=== PATIENT | female | born 1965 | race Two or more races ===

== ENCOUNTER 2016-10-15 11:14 | Emergency (ER) | payer MEDICARE, MEDICAID ==
[~2016-10-15] VITALS: Ht 147.3 cm; Wt 72.6 kg
[~2016-10-15 11:14] MED LIST: BUPR100T71; CARI250T8; FENT100D11; FENT25DI2; HYDR-2595; LORA1TAB12; METO25TA62; NOR10T; PREG25CA; SUM25T; ZOLP-158
[2016-10-15 11:23] VITALS: BP 113/86
[2016-10-15] MEDS: cefTRIAXone SOD 1,000 MG VL IM ONE (13:07)
[2016-10-15] MEDS: KETOROLAC TROMETH 60MG/2ML VIAL IM ONE (13:07)
== END 2016-10-15 13:44 | disposition home or self-care (01) ==
LOC: ER 11:24
DX: H66.91 Otitis media, unspecified, right ear (principal); J03.90 Acute tonsillitis, unspecified; M19.90 Unspecified osteoarthritis, unspecified site; Z88.1 Allergy status to other antibiotic agents; Z88.6 Allergy status to analgesic agent; Z90.710 Acquired absence of both cervix and uterus; Z90.49 Acquired absence of other specified parts of digestive tract; Z91.041 Radiographic dye allergy status
CPT/HCPCS: 96372; 99284; J0696; J1885

== ENCOUNTER 2016-12-18 01:29 | Emergency (ER) | payer MEDICARE, MEDICAID ==
[~2016-12-18] VITALS: Ht 147.3 cm; Wt 72.6 kg
[~2016-12-18 01:29] MED LIST changes: +CARI250T; -CARI250T8
[2016-12-18 01:58] LABS: Basophils # (auto) 0 uL; Basophils % (auto) 0.4 % (0.0-2.0); Eosinophils # (auto) 0.2 uL; Eosinophils % (auto) 1.5 % (0.0-7.0); Hematocrit 41.5 % (36.0-46.0); Hemoglobin 13.9 g/dL (12.2-16.2); Lymphocytes # (auto) 1.4 uL; Lymphocytes % (auto) 13.1 % (10.0-50.0); Mean Corpuscular Hemoglobin 28.4 pg (28.0-32.0); Mean Corpuscular Hgb Conc. 33.4 g/dL (32.0-36.0); Mean Corpuscular Volume 84.9 fL (80.0-100.0); Mean Platelet Volume 8.1 fL (7.4-10.4); Monocytes # (auto) 0.7 uL; Monocytes % (auto) 6.7 % (0.0-12.0); Neutrophils # (auto) 8.6 uL; Neutrophils % (auto) 78.3 % (37.0-80.0); Platelet Count (auto) 224 10^3/uL (140-450); Red Cell Distribution Width 13.8 % (11.6-16.0)
[2016-12-18 02:16] LABS: Albumin 3.2 g/dL (3.4-5.0); Anion Gap 11 (5-15); Aspartate Aminotransferase 12 U/L (15-37); BUN/Creatinine Ratio 16.5; Blood Urea Nitrogen 15 mg/dL (7-18); Calcium 8.7 mg/dL (8.5-10.1); Carbon Dioxide 25 mmol/L (21-32); Chloride 107 mmol/L (98-107); GFR African American 84 mL/min; GFR Non-African American 70 mL/min; Glucose 118 mg/dL (74-106); Potassium 3.6 mmol/L (3.5-5.1); Sodium 143 mmol/L (136-145)
[2016-12-18 02:23] LABS: Alkaline Phosphatase 107 U/L (45-117); Bilirubin, Total 0.4 mg/dL (0.2-1.0); Total Protein 7.7 g/dL (6.4-8.2)
[2016-12-18 02:38] LABS: Salicylate < 1.7 mg/dL (2.8-20.0)
[2016-12-18 02:39] LABS: Acetaminophen < 2.0 ug/mL (10-30)
[2016-12-18 03:55] LABS: Urine Bilirubin Negative (Negative); Urine Blood Negative /uL (Negative); Urine Color Yellow (Yellow); Urine Glucose Normal (Normal); Urine Granular Cast FEW /lpf (0); Urine Ketone Negative (Negative); Urine Nitrite Negative (Negative); Urine RBC 3 /hpf (0 - 4); Urine Squamous Epithelial Cell FEW /hpf (<5); Urine Urobilinogen Normal (Negative); Urine pH 5.5 (5.0-8.0)
[2016-12-18 08:00] VITALS: BP 104/68
== END 2016-12-18 08:17 | disposition home or self-care (01) ==
LOC: ER 01:29 → EDBD 01:29 → ER 08:17
DX: T43.591A Poisoning by other antipsychotics and neuroleptics, accidental (unintentional), initial encounter (principal); R42 Dizziness and giddiness; F17.210 Nicotine dependence, cigarettes, uncomplicated; M19.90 Unspecified osteoarthritis, unspecified site; G89.29 Other chronic pain; M54.9 Dorsalgia, unspecified; Z90.49 Acquired absence of other specified parts of digestive tract; Z90.710 Acquired absence of both cervix and uterus; Z88.1 Allergy status to other antibiotic agents; Z88.6 Allergy status to analgesic agent; Z91.041 Radiographic dye allergy status; Y93.89 Activity, other specified; Y99.8 Other external cause status; Y92.89 Other specified places as the place of occurrence of the external cause
CPT/HCPCS: 36415; 70450; 71010; 80053; 80307; 80320; 80329; 81001; 84484; 85025; 93005

== ENCOUNTER 2017-06-30 16:37 | Emergency (ER) | payer MEDICARE, MEDICAID ==
[~2017-06-30] VITALS: Ht 147.3 cm; Wt 72.6 kg
[2017-06-30 17:00] VITALS: BP 127/77
[2017-06-30] MEDS ORDERED: HYDROcodone-ACET 10/325MG TAB PO ONE (21:30)
== END 2017-06-30 22:13 | disposition home or self-care (01) ==
LOC: ER 16:37
DX: S70.02XA Contusion of left hip, initial encounter (principal); M19.90 Unspecified osteoarthritis, unspecified site; F17.210 Nicotine dependence, cigarettes, uncomplicated; W18.31XA Fall on same level due to stepping on an object, initial encounter; Y93.89 Activity, other specified; Y92.89 Other specified places as the place of occurrence of the external cause; Y99.8 Other external cause status; Z90.49 Acquired absence of other specified parts of digestive tract; Z90.710 Acquired absence of both cervix and uterus; Z88.2 Allergy status to sulfonamides; Z88.6 Allergy status to analgesic agent
CPT/HCPCS: 73502; 73700

== ENCOUNTER 2017-12-19 13:45 | Emergency (ER) | payer MEDICARE, MEDICAID ==
[~2017-12-19] VITALS: Ht 147.3 cm; Wt 72.6 kg
[2017-12-19] MEDS ORDERED: SODIUM CHLORIDE 0.9% 1,000 ML IVB ONE (14:42)
[2017-12-19] MEDS ORDERED: MORPHINE SULFATE 8mg/ml INJ SDV IV ONE (14:45)
[2017-12-19] MEDS ORDERED: ONDANSETRON HCL 4 MG/2 ML VIAL IV ONE (14:45)
[2017-12-19 14:46] LABS: Basophils # (auto) 0.1 uL; Eosinophils # (auto) 0.2 uL; Hematocrit 42.3 % (36.0-46.0); Lymphocytes # (auto) 1.7 uL; Lymphocytes % (auto) 26.7 % (10.0-50.0); Mean Corpuscular Hemoglobin 28.6 pg (28.0-32.0); Mean Corpuscular Volume 86.8 fL (80.0-100.0); Monocytes # (auto) 0.5 uL; Monocytes % (auto) 7.6 % (0.0-12.0); Neutrophils % (auto) 61.7 % (37.0-80.0); Platelet Count (auto) 230 10^3/uL (140-450); Red Blood Cells 4.87 10^6/uL (4.0-5.20); Red Cell Distribution Width 12.9 % (11.8-14.3); White Blood Cell 6.5 10^3/uL (4.4-10.8)
[2017-12-19 15:19] LABS: Magnesium 2.2 mg/dL (1.6-2.6)
[2017-12-19 15:21] LABS: INR 0.87 (0.9-1.15); Partial Thromboplastin Time 27.8 sec (23.78-33.04); Prothrombin Time 9.4 sec (9.27-12.13)
[2017-12-19 15:25] LABS: Alanine Aminotransferase 34 U/L (13-56); Albumin 3.4 g/dL (3.4-5.0); Alkaline Phosphatase 123 U/L (45-117); Anion Gap 9 (5-15); Aspartate Aminotransferase 13 U/L (15-37); Bilirubin, Total 0.2 mg/dL (0.2-1.0); Blood Urea Nitrogen 11 mg/dL (7-18); Calcium 8.7 mg/dL (8.5-10.1); Carbon Dioxide 26 mmol/L (21-32); Chloride 105 mmol/L (98-107); GFR African American 83 mL/min; GFR Non-African American 68 mL/min; Glucose 91 mg/dL (74-106); Potassium 4.3 mmol/L (3.5-5.1); Sodium 140 mmol/L (136-145); Total Protein 7.8 g/dL (6.4-8.2)
[2017-12-19 17:19] LABS: Urine Bacteria NONE SEEN /hpf (None Seen); Urine Blood TRACE /uL (Negative); Urine Mucus FEW (None Seen); Urine WBC <1 /hpf (0 - 5)
[2017-12-19 18:11] VITALS: BP 110/75
== END 2017-12-19 18:56 | disposition home or self-care (01) ==
LOC: ER 13:48
DX: K52.9 Noninfective gastroenteritis and colitis, unspecified (principal); F17.210 Nicotine dependence, cigarettes, uncomplicated; Z90.49 Acquired absence of other specified parts of digestive tract; Z90.710 Acquired absence of both cervix and uterus; Z88.2 Allergy status to sulfonamides; Z88.6 Allergy status to analgesic agent
CPT/HCPCS: 36415; 74176; 80053; 81001; 82150; 83605; 83690; 83735; 84484; 85025; 85610; 85730; 93005; 94761; 96361; 96374; 99285; J2405; J7030

== ENCOUNTER → 2020-01-01 | Emergency (ER) | payer MEDICARE, MEDICAID ==
[~2020-01-01] VITALS: Ht 147.3 cm; Wt 72.6 kg
[~2020-01-01] MED LIST changes: -METO25TA62; +METO25TA93; +diphenhdrAMINE HCL 50 MG/1 ML VL IV ONE; +methylPREDNISolone SOD SUCC 125 MG/2 ML VL IV ONE
[2020-01-01 20:17] VITALS: BP 106/74
== END | disposition home or self-care (01) ==
LOC: ER 19:51
DX: T78.40XA Allergy, unspecified, initial encounter (principal); R22.0 Localized swelling, mass and lump, head; F17.210 Nicotine dependence, cigarettes, uncomplicated; Z90.49 Acquired absence of other specified parts of digestive tract; Z90.710 Acquired absence of both cervix and uterus; X58.XXXA Exposure to other specified factors, initial encounter
CPT/HCPCS: 96374; 96375; 99284; J1200; J2930

== ENCOUNTER 2020-02-05 16:32 | Emergency (ER) | payer MEDICARE, MEDICAID ==
[~2020-02-05] VITALS: Ht 127 cm; Wt 72.6 kg
[~2020-02-05 16:32] MED LIST changes: -LORA1TAB12; +LORA1TAB23; -diphenhdrAMINE HCL 50 MG/1 ML VL IV ONE; -methylPREDNISolone SOD SUCC 125 MG/2 ML VL IV ONE
[2020-02-05] MEDS ORDERED: methylPREDNISolone SOD SUCC 125 MG/2 ML VL ONE (18:37)
[2020-02-05] MEDS ORDERED: diphenhdrAMINE HCL 50 MG/1 ML VL ONE (18:37)
[2020-02-05 18:40] VITALS: BP 108/70
[2020-02-05] MEDS ORDERED: diphenhdrAMINE HCL 50 MG/1 ML VL IM ONE (19:00)
[2020-02-05] MEDS ORDERED: methylPREDNISolone SOD SUCC 125 MG/2 ML VL IM ONE (19:00)
== END 2020-02-05 18:57 | disposition home or self-care (01) ==
LOC: ER 16:32
DX: T78.40XA Allergy, unspecified, initial encounter (principal); F17.210 Nicotine dependence, cigarettes, uncomplicated; F32.9 Major depressive disorder, single episode, unspecified; F41.9 Anxiety disorder, unspecified; Z90.49 Acquired absence of other specified parts of digestive tract; Z79.899 Other long term (current) drug therapy; Z88.1 Allergy status to other antibiotic agents; Z88.2 Allergy status to sulfonamides; Z88.6 Allergy status to analgesic agent
CPT/HCPCS: 96372; 99284; J1200; J2930

== ENCOUNTER 2020-02-28 16:27 | Emergency (ER) | payer MEDICARE, MEDICAID ==
[~2020-02-28] VITALS: Ht 149.9 cm; Wt 74.8 kg
[2020-02-28 16:34] VITALS: BP 122/82
== END 2020-02-28 17:47 | disposition home or self-care (01) ==
LOC: ER 16:27
DX: S60.861A Insect bite (nonvenomous) of right wrist, initial encounter (principal); T78.40XA Allergy, unspecified, initial encounter; M19.90 Unspecified osteoarthritis, unspecified site; F17.210 Nicotine dependence, cigarettes, uncomplicated; Z79.899 Other long term (current) drug therapy; Z88.2 Allergy status to sulfonamides; Z91.030 Bee allergy status; Z88.8 Allergy status to other drugs, medicaments and biological substances; Z88.5 Allergy status to narcotic agent; X58.XXXA Exposure to other specified factors, initial encounter; W57.XXXA Bitten or stung by nonvenomous insect and other nonvenomous arthropods, initial encounter; Y93.89 Activity, other specified; Y92.89 Other specified places as the place of occurrence of the external cause; Y99.8 Other external cause status

== ENCOUNTER 2020-05-01 15:16 | Emergency (ER) | payer MEDICARE, MEDICAID ==
[~2020-05-01] VITALS: Ht 149.9 cm; Wt 72.6 kg
[2020-05-01 15:29] VITALS: BP 122/80
[2020-05-01] MEDS ORDERED: diphenhdrAMINE HCL 50 MG/1 ML VL IM ONE (16:45)
== END 2020-05-01 17:18 | disposition home or self-care (01) ==
LOC: ER 15:16
DX: S40.861A Insect bite (nonvenomous) of right upper arm, initial encounter (principal); F17.210 Nicotine dependence, cigarettes, uncomplicated; Z90.49 Acquired absence of other specified parts of digestive tract; Z90.710 Acquired absence of both cervix and uterus; Z88.2 Allergy status to sulfonamides; Z88.6 Allergy status to analgesic agent; W57.XXXA Bitten or stung by nonvenomous insect and other nonvenomous arthropods, initial encounter; Y93.89 Activity, other specified; Y92.89 Other specified places as the place of occurrence of the external cause; Y99.8 Other external cause status
CPT/HCPCS: 96372; 99283; J1200

== ENCOUNTER 2020-05-05 13:32 | Emergency (ER) | payer MEDICARE, MEDICAID ==
[~2020-05-05] VITALS: Ht 147.3 cm; Wt 72.6 kg
[2020-05-05 15:19] VITALS: BP 118/79
== END 2020-05-05 15:00 | disposition home or self-care (01) ==
LOC: ER 13:32
DX: R22.41 Localized swelling, mass and lump, right lower limb (principal); R21 Rash and other nonspecific skin eruption; F17.210 Nicotine dependence, cigarettes, uncomplicated; Z90.49 Acquired absence of other specified parts of digestive tract; Z90.710 Acquired absence of both cervix and uterus; Z79.899 Other long term (current) drug therapy; Z88.2 Allergy status to sulfonamides; Z88.1 Allergy status to other antibiotic agents; Z88.5 Allergy status to narcotic agent; Z88.8 Allergy status to other drugs, medicaments and biological substances

== ENCOUNTER 2020-06-16 12:50 | Emergency (ER) | payer MEDICARE, MEDICAID ==
[~2020-06-16] VITALS: Ht 177.8 cm; Wt 74.8 kg
[2020-06-16 12:55] VITALS: BP 104/61
[2020-06-16] MEDS ORDERED: EPINEPHrine HCL 1 MG/1 ML AMP SC ONE (13:30)
== END 2020-06-16 14:40 | disposition home or self-care (01) ==
LOC: ER 12:50
DX: T78.40XA Allergy, unspecified, initial encounter (principal); F17.210 Nicotine dependence, cigarettes, uncomplicated; Z90.49 Acquired absence of other specified parts of digestive tract; Z90.710 Acquired absence of both cervix and uterus; Z88.2 Allergy status to sulfonamides; Z88.6 Allergy status to analgesic agent; X58.XXXA Exposure to other specified factors, initial encounter
CPT/HCPCS: 96372; 99283; J0171

== ENCOUNTER 2021-09-16 11:42 | Emergency (ER) | payer MEDICARE, MEDICAID ==
[~2021-09-16] VITALS: Ht 147.3 cm; Wt 90.7 kg
[~2021-09-16 11:42] MED LIST changes: -ZOLP-158; +ZOLP5TAB
[2021-09-16 12:39] LABS: Basophils # (auto) 0.1 10 ^3/uL (0-0.2); Basophils % (auto) 0.8 % (0.0-2.0); Eosinophils # (auto) 0.1 10 ^3/uL (0-0.8); Eosinophils % (auto) 2.1 % (0.0-7.0); Hematocrit 44.1 % (36.0-46.0); Hemoglobin 14.5 g/dL (12.2-16.2); Lymphocytes # (auto) 1.2 10 ^3/uL (0.4-5.4); Lymphocytes % (auto) 17.3 % (10.0-50.0); Mean Corpuscular Hemoglobin 29.1 pg (28.0-32.0); Mean Corpuscular Volume 88.3 fL (80.0-100.0); Monocytes # (auto) 0.5 10 ^3/uL (0-1.3); Monocytes % (auto) 6.8 % (0.0-12.0); Neutrophils # (auto) 4.9 10 ^3/uL (1.6-8.6); Nucleated Red Blood Cells % 0.1 %; Red Blood Cells 4.99 10^6/uL (4.0-5.20); Red Cell Distribution Width 13.8 % (11.8-14.3); White Blood Cell 6.8 10^3/uL (4.4-10.8)
[2021-09-16 13:10] LABS: Albumin 3.3 g/dL (3.4-5.0); Potassium 3.8 mmol/L (3.5-5.1)
[2021-09-16 13:14] LABS: BUN/Creatinine Ratio 14.6; Bilirubin, Total 0.4 mg/dL (0.2-1.0); Total Protein 7.5 g/dL (6.4-8.2)
[2021-09-16 14:06] LABS: Urine Bacteria MOD /hpf (None Seen); Urine Blood Negative /uL (Negative); Urine Mucus FEW (None Seen); Urine Specific Gravity 1.039 (1.001-1.035); Urine WBC 3 /hpf (0 - 5)
[2021-09-16 14:56] VITALS: BP 112/76
== END 2021-09-16 14:55 | disposition home or self-care (01) ==
LOC: ER 11:42
DX: R10.84 Generalized abdominal pain (principal); R11.2 Nausea with vomiting, unspecified; R19.7 Diarrhea, unspecified; R73.9 Hyperglycemia, unspecified; F17.210 Nicotine dependence, cigarettes, uncomplicated; Z90.49 Acquired absence of other specified parts of digestive tract; Z90.710 Acquired absence of both cervix and uterus; Z79.899 Other long term (current) drug therapy; Z88.2 Allergy status to sulfonamides; Z88.5 Allergy status to narcotic agent; Z88.8 Allergy status to other drugs, medicaments and biological substances; Z91.030 Bee allergy status
CPT/HCPCS: 36415; 74176; 80053; 81001; 83690; 85025; 93005

== ENCOUNTER 2023-03-03 11:07 | Emergency (ER) | payer MEDICAID, MEDICARE ==
[~2023-03-03] VITALS: Ht 149.9 cm; Wt 76.8 kg
[~2023-03-03 11:07] MED LIST changes: +LORA-1123; -LORA1TAB23
[2023-03-03 11:18] VITALS: BP 102/64; PULSE 116; RESP 18; TEMP 98.4; O2SAT 94
[2023-03-03] MEDS ORDERED: DexAMETHasone SOD PHOS 10MG/1ML VIAL INJ IM ONE (14:45)
[2023-03-03] MEDS ORDERED: diphenhdrAMINE HCL 25 MG CAP PO ONE (14:45)
[2023-03-03] MEDS ORDERED: EPINEPHrine HCL 1 MG/1 ML AMP SC ONE (14:45)
[2023-03-03] MEDS ORDERED: EPINEPHrine HCL 1 MG/1 ML AMP IM ONE (15:15)
== END 2023-03-03 16:48 | disposition home or self-care (01) ==
LOC: ER 11:07
DX: T78.40XA Allergy, unspecified, initial encounter (principal); F17.210 Nicotine dependence, cigarettes, uncomplicated; Z90.49 Acquired absence of other specified parts of digestive tract; Z90.710 Acquired absence of both cervix and uterus; Z79.899 Other long term (current) drug therapy; Z88.2 Allergy status to sulfonamides; Z88.5 Allergy status to narcotic agent; Z88.8 Allergy status to other drugs, medicaments and biological substances; Z91.030 Bee allergy status; Y92.89 Other specified places as the place of occurrence of the external cause
CPT/HCPCS: 96372; 99284; J0171; J1100

== ENCOUNTER 2023-09-15 17:49 | Emergency (ER) | payer MEDICARE, MEDICAID ==
[~2023-09-15] VITALS: Ht 162.6 cm; Wt 82.0 kg
[2023-09-15 18:33] VITALS: BP 113/70; RESP 18; O2SAT 95
[2023-09-15 18:36] LABS: Basophils # (auto) 0 10 ^3/uL (0-0.2); Basophils % (auto) 0.8 % (0.0-2.0); Eosinophils # (auto) 0.1 10 ^3/uL (0-0.8); Eosinophils % (auto) 2.3 % (0.0-7.0); Hemoglobin 13.9 g/dL (12.2-16.2); Lymphocytes # (auto) 1.8 10 ^3/uL (0.4-5.4); Lymphocytes % (auto) 28.5 % (10.0-50.0); Mean Corpuscular Hemoglobin 27.1 pg (28.0-32.0); Mean Corpuscular Hgb Conc. 32.4 g/dL (32.0-36.0); Mean Corpuscular Volume 83.8 fL (80.0-100.0); Monocytes # (auto) 0.4 10 ^3/uL (0-1.3); Monocytes % (auto) 6.5 % (0.0-12.0); Neutrophils % (auto) 61.9 % (37.0-80.0); Nucleated Red Blood Cells % 0.1 %; Red Blood Cells 5.14 10^6/uL (4.0-5.20); Red Cell Distribution Width 13.7 % (11.8-14.3); White Blood Cell 6.5 10^3/uL (4.4-10.8)
[2023-09-15 19:21] LABS: Alanine Aminotransferase 21 U/L (7-40); Alkaline Phosphatase 87 U/L (46-116); Anion Gap 4 (5-15); Aspartate Aminotransferase 17 U/L (13-40); BUN/Creatinine Ratio 24.7 (10.0-20.0); Blood Urea Nitrogen 18 mg/dL (9-23); Calcium 8.5 mg/dL (8.7-10.4); Carbon Dioxide 28 mmol/L (20-30); Chloride 107 mmol/L (98-107); Glucose 95 mg/dL (74-106); Magnesium 1.9 mg/dL (1.6-2.6); Potassium 4.2 mmol/L (3.5-5.1); Sodium 139 mmol/L (136-145)
[2023-09-15 19:22] LABS: Bilirubin, Total < 0.2 mg/dL (0.2-1.0); Total Protein 6.5 g/dL (5.7-8.2)
[2023-09-15 21:07] VITALS: PULSE 90
== END 2023-09-15 21:21 | disposition home or self-care (01) ==
LOC: EDUNIT# 17:49 → EDBD 17:49 → ER 17:49
DX: R07.89 Other chest pain (principal); I11.0 Hypertensive heart disease with heart failure; I50.9 Heart failure, unspecified; E11.9 Type 2 diabetes mellitus without complications; F17.210 Nicotine dependence, cigarettes, uncomplicated; Z90.49 Acquired absence of other specified parts of digestive tract; Z90.710 Acquired absence of both cervix and uterus; Z79.899 Other long term (current) drug therapy; Z88.2 Allergy status to sulfonamides; Z88.5 Allergy status to narcotic agent; Z88.8 Allergy status to other drugs, medicaments and biological substances; Z91.030 Bee allergy status
CPT/HCPCS: 36415; 71045; 80053; 83735; 83880; 84484; 85025; 93005

== ENCOUNTER 2023-12-31 14:19 | Emergency (ER) | payer MEDICARE, MEDICAID ==
[~2023-12-31] VITALS: Ht 149.9 cm; Wt 83.0 kg
[2023-12-31 15:47] VITALS: BP 101/46; PULSE 108; RESP 18; TEMP 98; O2SAT 94
[2023-12-31] MEDS ORDERED: FURO1TAB31 PO (15:54)
[2023-12-31] MEDS ORDERED: POTA-36 PO (15:54)
== END 2023-12-31 16:00 | disposition home or self-care (01) ==
LOC: ER 14:21
DX: S80.261A Insect bite (nonvenomous), right knee, initial encounter (principal); I11.0 Hypertensive heart disease with heart failure; I50.9 Heart failure, unspecified; E11.9 Type 2 diabetes mellitus without complications; M19.90 Unspecified osteoarthritis, unspecified site; F41.9 Anxiety disorder, unspecified; F32.9 Major depressive disorder, single episode, unspecified; F17.210 Nicotine dependence, cigarettes, uncomplicated; Z76.0 Encounter for issue of repeat prescription; Z98.890 Other specified postprocedural states; Z88.8 Allergy status to other drugs, medicaments and biological substances; Z91.041 Radiographic dye allergy status; Z79.899 Other long term (current) drug therapy; W57.XXXA Bitten or stung by nonvenomous insect and other nonvenomous arthropods, initial encounter; Y93.89 Activity, other specified; Y92.89 Other specified places as the place of occurrence of the external cause; Y99.8 Other external cause status

== ENCOUNTER 2024-08-22 15:26 | Emergency (ER) | payer MEDICARE, MEDICAID ==
[~2024-08-22] VITALS: Ht 149.9 cm; Wt 82.8 kg
[~2024-08-22 15:26] MED LIST changes: +FURO1TAB31 PO; +POTA-36 PO
--- NOTE | 2024-08-22 16:12 | DVH ---
HISTORY: right forhead, periorbital bruise/injury. TECHNIQUE: Nonenhanced axial images through the facial bones with coronal and sagittal MPR. Radiation Dose Information: CT Dose: CTDI volume is 63.59 mGy. Dose-length product is 1199.59 mGy*cm FINDINGS: Mandible: Normal Maxilla: Normal Pterygoid plates: Normal Zygomatic processes: Normal. Zygomatic arches: Normal Orbits: Normal Sinuses: Normal Facial swelling: Mild soft tissue swelling above the right eye. No acute fracture or intracranial he morrhage. IMPRESSION: 1. No acute facial fractures. 2. Mild soft tissue swelling over the right orbit no fracture or intracranial hemorrhage. Radiation optimization: All CT scans at this facility use at least one of these dose optimization papito hniques: automated exposure control mA and/or kV adjustment per patient size (includes targeted exam s where dose is matched to clinical indication) or iterative reconstruction.
--- NOTE | 2024-08-22 16:19 | ED.PDOC ---
Carlito. trauma (HPI) HPI Comments HPI: Poor Historian. HPI: 58 y/o F, presents to the ED for CC of wound check. Patient states, that TV hit her head x4days ago, patient has visible right eyebrow swelling. Patient denies LOC, headache, dizziness, numbness, or N/V/D. No other symptoms or modifying factors at this time. Three days ago her sister accidentally closed the trunk of the car on the same area of pain accidentally. No loss of consciousness.. Patient went to [facility] yesterday and had a CT scan imaging and she was told there was nothing there and they sent her home. Patient comes in here for 2nd opinion. Initial Vitals: Temp:98.2 BP:112/56 HR:118 RR:17 O2 Sat.:95% Past Medical History: DM, SPINAL CORD TUMOR, CHF Past Surgical History: BACK SX, GALLBLADDER, Social History: Denies ETOH, and drug use SMOKES TOBACCO Medication: Denies Allergies: NKDA REVIEW OF SYSTEMS: CONSTITUTIONAL: Denies acute: fever, diaphoresis, chills, generalized weakness. HEAD: Denies acute: headache, photophobia Eyes: Denies acute: Double vision, vision loss, eye pain, eye discharge. EARS: Denies acute: tinnitus, hearing loss, ear discharge, ear pain, THROAT: Denies acute: sore throat, swelling, difficulty swallowing , pain with swallowing, change in voice. NECK: Denies acute: neck pain, neck swelling, stiff neck. HEART: Denies acute : chest pain, palpitations, LUNGS: Denies acute: SOB, wheezing, cough, hemoptysis ABDOMEN: Denies acute: abdominal pain, Nausea, Vomiting, diarrhea, melena , hematemesis, hematochezia SKIN: Denies acute: rash, redness, lesions, itchiness. EXTREMITIES: Denies acute: calf pain, numbness, tingling, weakness, denies pain in extremity. Denies acute: Low back pain. Neuro: Denies acute: focal neurological deficit, motor or sensory focal neurological deficit, tremors, seizure like activity, confusion, dizziness, change in mental status, loss of bowel or bladder function, cauda equina like symptoms. : Denies acute: dysuria, hematuria, flank pain, increase in urinary frequency. PSYCH: Denies acute: hallucination, suicidal ideation, homicidal ideation. FEMALE: Denies acute: abnormal vaginal bleeding, foul odor, unusual discharge. PHYSICAL EXAM: General: no acute distress, awake and alert. Head: normocephalic, atraumatic. Neck: supple, trachea is midline, no swelling. Throat: Normal phonation. Eyes:, no erythema, no purulent discharge, no proptosis, no icterus. Noted right eye periorbital contusion. Noted right eyebrow bruise and swelling that is tender to palpation. Heart: regular rate, regular rhythm, no significant murmur appreciated. Lungs: no apparent respiratory distress, Able to speak in full sentences. No wheezing, no rhonchi, no crackles. No stridors Clear to auscultation bilaterally. Abdomen: non tender to palpation, non distended, soft, no guarding, no rebound, + bowel sounds. Neuro: Awake, Alert, oriented to name, self, situation, follows commands GCS=15. Speech is normal. Skin: no petechia, no purpura, no cyanosis, non-pale, not jaundice. Lower extremities: --trace bilateral - Pitting edema no deformity, no focal swelling, no calf TTP. Makes eye contact. moves all four extremities. Face: no apparent facial droop. Ambulating in the ED independently. TRUNG JACOBO Chief Complaint: Face pain Time Seen by MD: 15:28 Primary Care Provider: none Reviewed notes: Nurses Notes, Medications, Allergies Allergies: Coded Allergies: Cephalexin (Verified Allergy, Severe, HIVES, 04/07/11) Sulfa Antibiotics (Verified Allergy, Severe, SWELLING, 05/01/15) Bee Venom (Verified Allergy, Unknown, 01/01/20) Iodine (Verified Allergy, Unknown, 06/16/15) Morphine (Verified Allergy, Unknown, 05/01/15) Home Meds Active Scripts Doxycycline Hyclate (DOXYCYCLINE HYCLATE) 100 Mg Tab, 1 TAB PO BID for 7 Days, #14 TAB Prov:DENILSON WATERMAN DO 08/22/24 Potassium Chloride (POTASSIUM CHLORIDE CR) 10 Meq Tb, 1 TAB PO DAILY PRN, #20 TAB Prov:JOANN CARRILLO 12/31/23 Furosemide (Lasix) 40 Mg Tab, 40 MG PO DAILY PRN, #20 TAB Prov:JOANN CARRILLO 12/31/23 Reported Medications [Hydrocodone/Ace1 Tab] (Hydrocodone/Acetaminophen) 1 TAB TAB No Conflict Check, TAB 02/23/13 [[id number] Mcg/Hr] (Fentanyl) 25 MCG/HR DIS No Conflict Check, HR 02/23/13 [Lorazepam1 Mg] (Lorazepam) 1 MG TAB No Conflict Check, MG 02/23/13 Sumatriptan Succinate (Imitrex) 25 Mg Tab 04/07/11 Zolpidem Tartrate (Ambien) 5 Mg Tab 04/07/11 Bupropion Hcl (Wellbutrin) 100 Mg Tab 04/07/11 Metoprolol Succinate (Metoprolol Succinate Er) 25 Mg Tab 04/07/11 Pregabalin (Lyrica) 25 Mg Cap 04/07/11 Carisoprodol (Soma) 250 Mg Tab 04/07/11 Hydrocodone-Acetaminophen ([place] 10/325MG) 1 Tab Tb 04/07/11 Fentanyl (Duragesic) 100 Mcg/H Dis 04/07/11 Information Source: Patient Mode of Arrival: Ambulatory Severity: Mild Timing: Days Duration: Since onset Prehospital treatment: None Location of laceration: Face (RIGHT EYEBROW) Associated signs and symtoms: None Was a procedure done? Was a procedure done?: No Differential Diagnosis Multiple Trauma: Closed Head Injury, Fractures, Cerebral Contusion, Spine Injury, Abrasions, Contusion, Foreign Body, Hematoma, Laceration, Other (Eye injury, entrapment) X-Ray, Labs, Meds, VS Vital Signs Date Time Temp Pulse Resp B/P (MAP) Pulse Ox O2 Delivery O2 Flow Rate FiO2 08/22/24 18:24 Room Air* 0 21 08/22/24 18:23 98.2 91 15 110/50 (70) 97 98.2 08/22/24 15:48 98.2 118 17 112/56 (74) 95 Lab Test 08/22/24 16:18 Range/Units White Blood Count 8.3 4.4-10.8 10^3/uL Red Blood Count 4.89 4.0-5.20 10^6/uL Hemoglobin 14.3 12.2-16.2 g/dL Hematocrit 42.7 36.0-46.0 % Mean Corpuscular Volume 87.3 80.0-100.0 fL Mean Corpuscular Hemoglobin 29.2 28.0-32.0 pg Mean Corpuscular Hemoglobin Concent 33.4 32.0-36.0 g/dL Red Cell Distribution Width 13.9 11.8-14.3 % Platelet Count 186 140-450 10^3/uL Mean Platelet Volume 7.9 6.9-10.8 fL Neutrophils (%) (Auto) 67.6 37.0-80.0 % Lymphocytes (%) (Auto) 20.6 10.0-50.0 % Monocytes (%) (Auto) 8.0 0.0-12.0 % Eosinophils (%) (Auto) 3.1 0.0-7.0 % Basophils (%) (Auto) 0.7 0.0-2.0 % Neutrophils # (Auto) 5.6 1.6-8.6 10 ^3/uL Lymphocytes # (Auto) 1.7 0.4-5.4 10 ^3/uL Monocytes # (Auto) 0.7 0-1.3 10 ^3/uL Eosinophils # (Auto) 0.3 0-0.8 10 ^3/uL Basophils # (Auto) 0.1 0-0.2 10 ^3/uL Nucleated Red Blood Cells 0.0 % Erythrocyte Sedimentation Rate 23 H 0-20 mm/hr Sodium Level 141 136-145 mmol/L Potassium Level 3.6 3.5-5.1 mmol/L Chloride Level 104 98-107 mmol/L Carbon Dioxide Level 31 20-31 mmol/L Anion Gap 6 5-15 Blood Urea Nitrogen 18 9-23 mg/dL Creatinine 1.02 0.550-1.02 mg/dL Glomerular Filtration Rate Calc 64 >90 mL/min BUN/Creatinine Ratio 17.6 10.0-20.0 Serum Glucose 118 H 74-106 mg/dL Calcium Level 9.1 8.7-10.4 mg/dL Total Bilirubin 0.2 0.2-1.0 mg/dL Aspartate Amino Transferase (AST) 15 13-40 U/L Alanine Aminotransferase (ALT) 18 7-40 U/L Alkaline Phosphatase 80 46-116 U/L C-Reactive Protein High Sensitivity 2.23 H <1.0 mg/dL Total Protein 6.7 5.7-8.2 g/dL Albumin 4.2 3.2-4.8 g/dL [facility] [id number] [facility] [address] Ph: [phone] DIAGNOSTIC IMAGING Diagnostic Imaging Report : [id number] Signed PATIENT: GABBI OROPEZA ACCT: [id number] UNIT: [id number] : 1965 LOC: ER ROOM / BED: / AGE / SEX: 58 / F ADM STATUS: REG ER SERVICE [id number] ORDERING PHYSICIAN: DENILSON WATERMAN DO PROCEDURE(s): FAC2C - MAXILLOFACIAL WITHOUT REASON: right forhead, periorbital bruise/injury. ORDER NUMBER(s): [id number], ACCESSION NUMBER(s): [id number] HISTORY: right forhead, periorbital bruise/injury. TECHNIQUE: Nonenhanced axial images through the facial bones with coronal and sagittal MPR. Radiation Dose Information: CT Dose: CTDI volume is 63.59 mGy. Dose-length product is 1199.59 mGy*cm FINDINGS: Mandible: Normal Maxilla: Normal Pterygoid plates: Normal Zygomatic processes: Normal. Zygomatic arches: Normal Orbits: Normal Sinuses: Normal Facial swelling: Mild soft tissue swelling above the right eye. No acute fracture or intracranial hemorrhage. IMPRESSION: 1. No acute facial fractures. 2. Mild soft tissue swelling over the right orbit no fracture or intracranial hemorrhage. Radiation optimization: All CT scans at this facility use at least one of these dose optimization techniques: automated exposure control mA and/or kV adjustment per patient size (includes targeted exams where dose is matched to clinical indication) or iterative reconstruction. ATED BY: MEGAN MOTTA Jr., DO DICTATED DATE/TIME: 08/22/24 161 SIGNED BY: MEGAN MOTTA Jr., SIGNED DATE/TIME: 08/22/24 161 CC: Time of 1ST Reevaluation: 15:58 Reevaluation 1ST: Unchanged Time of 2ND Reevaluation: 18:19 (After prescribed outpatient Augmentin then later Patient stated that she is allergic to amoxicillin. We canceled the Augmentin.) Patient Education/Counseling: Diagnosis, Treatment Family Education/Counseling: No Family Present Comments Patient presented with the above HPI.-- -WOUND CHECK from a head injury--workup was initiated. patient was found with the above mentioned diagnosis. the following medications were ordered: NONE the following tests were ordered: LABS, CT MAXLLOFACIAL Patient ED course and VS have been stabilized. Patient has been reassessed in the ED and remained in a stable condition. Pertinent incidental findings were discussed with the patient and/or family. Patient/family voices understanding and is agreeable with plan. Patient has been observed in the ED adequate length of time to insure improvement/stability. Escalation of care considered: Consideration of escalation to observation or admission Patient was DISCHARGED home in a stable condition. All the reports of any imaging studies that were ordered by myself were reviewed by myself. Departure 1 Departure Time of Disposition: 17:30 Impression: Primary Impression: Facial contusion Disposition: HOME / SELF CARE / HOMELESS Condition: Stable Additional Instructions: Additional discharge instructions: You MUST follow-up with your primary care/family doctor in 1 to 2 days. If you are unable to see your primary care/family doctor, please return to our emergency room for re-assessment and re-evaluation in 1 to 2 days. Return to the emergency room here in our facility or to the nearest ER [facility] if your symptoms change or worsen. CONSULTATIONS: you MUST Follow-up for consultation as soon as possible with: -maxillofacial surgeon in 1-2 days. Please call for appointment You MUST call the consultants office yourself to make an appointment. You may need to arrange that through your insurance and/or your primary/family doctor. If you are unable to see the procurement consultant in 1 to 2 days, you must return to our emergency room (or any other ER of your choice) for re-assessment and re- evaluation. Adequate fluid hydration. Below is a copy of your radiological report for follow up: [address] [address] Ph: [phone] DIAGNOSTIC IMAGING Diagnostic Imaging Report : [id number] Signed PATIENT: GABBI OROPEZA ACCT: [id number] UNIT: [id number] : 1965 LOC: ER ROOM / BED: / AGE / SEX: 58 / F ADM STATUS: REG ER SERVICE 1546 ORDERING PHYSICIAN: DENILSON WATERMAN DO PROCEDURE(s): FAC2C - MAXILLOFACIAL WITHOUT REASON: right forhead, periorbital bruise/injury. ORDER NUMBER(s): [id number], ACCESSION NUMBER(s): [id number] HISTORY: right forhead, periorbital bruise/injury. TECHNIQUE: Nonenhanced axial images through the facial bones with coronal and sagittal MPR. Radiation Dose Information: CT Dose: CTDI volume is 63.59 mGy. Dose-length product is 1199.59 mGy*cm FINDINGS: Mandible: Normal Maxilla: Normal Pterygoid plates: Normal Zygomatic processes: Normal. Zygomatic arches: Normal Orbits: Normal Sinuses: Normal Facial swelling: Mild soft tissue swelling above the right eye. No acute fracture or intracranial hemorrhage. IMPRESSION: 1. No acute facial fractures. 2. Mild soft tissue swelling over the right orbit no fracture or intracranial hemorrhage. Radiation optimization: All CT scans at this facility use at least one of these dose optimization techniques: automated exposure control mA and/or kV adjustment per patient size (includes targeted exams where dose is matched to clinical indication) or iterative reconstruction. ATED BY: MEGAN MOTTA Jr., DO DICTATED DATE/TIME: 08/22/241609 SIGNED BY: MEGAN MOTTA Jr., SIGNED DATE/TIME: 08/22/241609 CC: e-Prescriptions Doxycycline Hyclate (DOXYCYCLINE HYCLATE) 100 Mg Tab 1 TAB PO BID for 7 Days, #14 TAB Prov: DENILSON WATERMAN DO 08/22/24 Discharged With: Self Heart Score Heart Score: Heart Score Response (Comments) Value History N/A 0 EKG N/A 0 Age N/A 0 Risk Factors N/A 0 Troponin N/A 0 Total 0 I personally scribed for DENILSON WATERMAN DO ([email or web address]) on 08/22/24 at 16:19. Electronically submitted by Berenice Ramires ([email or web address]). I personally scribed for DENILSON WATERMAN DO ([email or web address]) on 08/22/24 at 16:38. Electronically submitted by Berenice Ramires ([email or web address]). DENILSON WATERMAN DO Aug 22, 2024 16:19
[2024-08-22 16:32] LABS: Basophils # (auto) 0.1 10 ^3/uL (0-0.2); Basophils % (auto) 0.7 % (0.0-2.0); Eosinophils # (auto) 0.3 10 ^3/uL (0-0.8); Eosinophils % (auto) 3.1 % (0.0-7.0); Hematocrit 42.7 % (36.0-46.0); Hemoglobin 14.3 g/dL (12.2-16.2); Lymphocytes # (auto) 1.7 10 ^3/uL (0.4-5.4); Lymphocytes % (auto) 20.6 % (10.0-50.0); Mean Corpuscular Hemoglobin 29.2 pg (28.0-32.0); Mean Corpuscular Hgb Conc. 33.4 g/dL (32.0-36.0); Mean Corpuscular Volume 87.3 fL (80.0-100.0); Monocytes # (auto) 0.7 10 ^3/uL (0-1.3); Neutrophils # (auto) 5.6 10 ^3/uL (1.6-8.6); Neutrophils % (auto) 67.6 % (37.0-80.0); Platelet Count (auto) 186 10^3/uL (140-450); Red Blood Cells 4.89 10^6/uL (4.0-5.20); Red Cell Distribution Width 13.9 % (11.8-14.3); White Blood Cell 8.3 10^3/uL (4.4-10.8)
[2024-08-22 16:47] LABS: Alanine Aminotransferase 18 U/L (7-40); Albumin 4.2 g/dL (3.2-4.8); Alkaline Phosphatase 80 U/L (46-116); Anion Gap 6 (5-15); Aspartate Aminotransferase 15 U/L (13-40); BUN/Creatinine Ratio 17.6 (10.0-20.0); Blood Urea Nitrogen 18 mg/dL (9-23); Calcium 9.1 mg/dL (8.7-10.4); Carbon Dioxide 31 mmol/L (20-31); Chloride 104 mmol/L (98-107); Potassium 3.6 mmol/L (3.5-5.1); Sodium 141 mmol/L (136-145); Total Protein 6.7 g/dL (5.7-8.2)
[2024-08-22 17:06] LABS: Erythrocyte Sedimentation Rate 23 mm/hr (0-20)
[2024-08-22 17:07] LABS: Bilirubin, Total 0.2 mg/dL (0.2-1.0); CRP High Sensitivity 2.23 mg/dL (<1.0); Glucose 118 mg/dL (74-106)
[2024-08-22] MEDS ORDERED: AUG875T PO (17:32)
[2024-08-22] MEDS ORDERED: DOXY-286 PO (18:20)
[2024-08-22 18:23] VITALS: BP 110/50; PULSE 91; RESP 15; TEMP 98.2; O2SAT 97
== END 2024-08-22 18:27 | disposition home or self-care (01) ==
LOC: ER 15:26
DX: S00.83XA Contusion of other part of head, initial encounter (principal); I50.9 Heart failure, unspecified; E11.9 Type 2 diabetes mellitus without complications; F17.200 Nicotine dependence, unspecified, uncomplicated; Z88.1 Allergy status to other antibiotic agents; Z88.2 Allergy status to sulfonamides; Z88.5 Allergy status to narcotic agent; Z88.8 Allergy status to other drugs, medicaments and biological substances; Z91.030 Bee allergy status; Z79.899 Other long term (current) drug therapy; W22.8XXA Striking against or struck by other objects, initial encounter; Y93.89 Activity, other specified; Y92.89 Other specified places as the place of occurrence of the external cause; Y99.8 Other external cause status
CPT/HCPCS: 36415; 70486; 80053; 85025; 85652; 86141